=== PATIENT | male | born 1990 | race Caucasian/White ===

== ENCOUNTER 2024-10-25 22:14 | Emergency (ER) | payer OTHER, SELFPAY ==
[2024-10-25 22:22] VITALS: BP 160/100; PULSE 86; O2SAT 99
[2024-10-25 22:35] VITALS: BP 137/74; PULSE 92; RESP 18; TEMP 36.7; O2SAT 98; BMI 46.5
[2024-10-26 01:24] VITALS: BP 115/66; PULSE 76; RESP 16; TEMP 36.9; O2SAT 96
[2024-10-26 01:43] LABS: Hematocrit 41.2 % (42.0-52.0); Hemoglobin 13.8 g/dl (14.0-18.0); Imm Gran Abs Auto 0.04 X10*3/uL (0.00-0.03); Imm Gran Pct Auto 0.5 % (0.0-0.4); Lymphocytes Absolute Auto 2.2 X10*3/uL (1.2-4.9); MANUAL DIFF FLAG NO; Mean Corpuscular HGB Conc 33.5 g/dl (31.0-36.0); Mean Corpuscular Hemoglobin 27.9 pg (27.0-33.0); Mean Corpuscular Volume 83.2 fL (80.0-98.0); NRBC Abs Auto 0.000 X10*3/uL (0.0-0.012); NRBC Pct Auto 0.0 /100WBC (0.0-0.2); Platelet Count 302 X10*3/uL (160-400); Red Blood Count 4.95 X10*6/uL (4.60-5.80); White Blood Count 7.8 X10*3/uL (4.8-10.8)
--- NOTE | 2024-10-26 01:51 | ED_ITS ---
HPI - General Adult General Chief complaint: General Medical Stated complaint: n/v diaphoretic L arm hurts Time Seen by Provider: 10/26/24 01:50 Source: patient Mode of arrival: ambulatory Limitations: no limitations History of Present Illness ED Provider: Anthony JAMESON HPI narrative: The patient is a otherwise healthy 34-year-old male presenting to the ED reporting approximately 1 hour prior to arrival in the ED he had returned home from running errands, was helping his in the kitchen, when he became significantly diaphoretic with left arm tingling and pain radiating from his left shoulder into his left neck. The patient reports he advised his he would take a shower, while in the shower became acutely nauseous and vomited 1 time with nonbilious and nonbloody vomiting. The patient denies associated objective fever, chills, chest pain, shortness of breath, pleurisy, headache, dizziness, near-syncope, syncope, recent sick contacts, recent trauma, change in activity, change in diet, or similar previous episodes. The patient reports since arriving in the ED his symptoms have fully resolved. Patient denies any alcohol or recreational drug use, reports eating and drinking well today. Related Data Allergies Allergy/AdvReac Type Severity Reaction Status Date / Time No Known Allergies Allergy Verified 10/25/24 22:36 Review of Systems 2 Review of Systems: Yes all other systems are reviewed and are negative PMFSH Social History Social History Smoked in Last 30 Days: No Use of substances other than those prescribed or required for medical reasons: No Advance Directives: No Advance Directives Information Provided: Yes Physical Exam ED Vital Signs: Vital Signs - 24 hr 10/25/24 22:35 10/26/24 01:24 Temperature 98.1 F 98.4 F Pulse Rate 92 76 Respiratory Rate 18 16 Blood Pressure 137/74 115/66 Pulse Oximetry 98 96 Oxygen Delivery Method Room Air Room Air BMI result Body Mass Index 46.5 CONSTITUTIONAL: The patient appears non-toxic, well nourished and in no acute distress. Vital signs as documented. HEAD: Atraumatic, normocephalic. EYES: EOMs grossly intact, pupils equal, conjunctiva clear, no exudate. ENT: Nares patent, no discharge. Airway patent, no audible stridor, visible mucosa is pink and moist without noted lesions. NECK: Trachea is midline, no obvious masses or gross abnormalities. CHEST: Symmetric movement, normal appearance. LUNGS: LS present and CTAB, no w/r/r. Non-labored work of breathing. CARDIAC: Regular Rhythm, S1/S2 appreciated, no murmurs, rubs or gallops. ABDOMEN: Abdomen soft and non-tender x4 quadrants, no palpable masses or organomegaly. : Deferred. EXTREMITIES: Normal tone, moves all extremities spontaneously without reported pain. No obvious acute injury or deformity noted. NEURO: Alert and oriented x3, CN II-XII intact. Cerebellar Functioning intact. Strength 5/5 x4, no sensory or motor deficits. Speech clear and appropriate. PSYCH: normal affect, appropriate eye contact, fluid speech, with appropriate response to questioning. No reported suicidality or homicidality. SKIN: Warm, dry, color appropriate, normal turgor. No rashes noted. Medical Decision Making Medical Decision Making MDM Narrative: 2:38 AM 10/26/2024 (Simona JAMESON): The patient is a [place] healthy 34-year-old male presenting to the ED for evaluation of sudden onset diaphoresis with left shoulder pain radiating to left neck that began while performing ADLs in the kitchen. Patient took a shower due to diaphoresis and became acutely nauseous with a 1 episode of nonbilious and nonbloody vomiting. The patient had no associated chest pain, no dizziness, headache, focal neurologic deficit, or syncope. Patient presents to the ED health reports since arriving in the ED his symptoms have fully resolved. The patient's exam is markedly reassuring, no acute findings, no focal neurological deficits. The patient's EKG is nonischemic, troponin is negative, viral swab negative for flu, RSV, or COVID. Laboratory evaluation shows no leukocytosis, significant anemia, electrolyte abnormality, or ROSALINDA. Lipase and LFTs are unremarkable. The patient is PERC negative. The exact cause of the patient's symptoms is not entirely clear, however at this time the patient's exam is benign, symptoms have resolved, and workup is markedly reassuring. The patient's symptoms occurred at approximately 21:00, patient reports symptoms had resolved upon arrival in the ED at 22:30, 1st troponin was drawn at 01:40. We will recommend repeat troponin at 03:30. Pending no reoccurrence of symptoms and negative repeat troponin, patient will be appropriate for discharge with outpatient follow up. Admission/Observation Consideration of admission/observation: Escalation of care including admission/observation considered Lab Data MDM Lab Attestation statement: I reviewed the patient's lab results. 10/26/24 01:38 10/26/24 01:38 Labs: Lab Results 10/26/24 10/26/24 Range/Units 01:38 03:35 WBC 7.8 (4.8-10.8) X10*3/uL RBC 4.95 (4.60-5.80) X10*6/uL Hgb 13.8 L (14.0-18.0) g/dl Hct 41.2 L (42.0-52.0) % MCV 83.2 (80.0-98.0) fL MCH 27.9 (27.0-33.0) pg MCHC 33.5 (31.0-36.0) g/dl RDW 14.1 (11.0-16.0) % Plt Count 302 (160-400) X10*3/uL MPV 9.3 L (9.4-12.4) fL Immature Gran % (Auto) 0.5 H (0.0-0.4) % Neut % (Auto) 59.4 (45-73) % Lymph % (Auto) 27.8 (20-40) % [place] % (Auto) 8.7 (2-11) % Eos % (Auto) 3.2 (0-4) % Baso % (Auto) 0.4 (0-2) % Lymph # (Auto) 2.2 (1.2-4.9) X10*3/uL [place] # (Auto) 0.7 (0.1-1.2) X10*3/uL Eos # (Auto) 0.3 (0.0-0.4) X10*3/uL Baso # (Auto) 0.0 (0.0-0.2) X10*3/uL Abs Immat Gran (auto) 0.04 H (0.00-0.03) X10*3/uL Absolute Neuts (auto) 4.7 (2.0-8.3) x10*3/uL Absolute Nucleated RBC 0.000 (0.0-0.012) X10*3/uL Nucleated RBC % (auto) 0.0 (0.0-0.2) /100WBC Sodium 139 (135-145) mmol/L Potassium 4.6 (3.3-5.1) mmol/L Chloride 103 (96-108) mmol/L Carbon Dioxide 28 (22-29) mmol/L Anion Gap 13 (12-20) BUN 16 (9-16) mg/dL Creatinine 0.75 (0.5-1.4) mg/dL Estim Creat Clear Calc 217.4 Estimated GFR > 60 Random Glucose 103 (60-115) mg/dL Calcium 9.1 (8.4-10.2) mg/dL Total Bilirubin 0.4 (0.0-1.0) mg/dL AST 30 (5-37) U/L ALT 27 (0-40) U/L Alkaline Phosphatase 100 (39-117) U/L Troponin I High Sens 3.6 2.9 (<3.5-35.0) ng/L Total Protein 7.1 (6.5-8.0) g/dL Albumin 4.1 (3.5-5.0) g/dL Lipase 15 (8-78) U/L Influenza Type A (PCR) NEGATIVE (Negative) Influenza Type B (PCR) NEGATIVE (Negative) RSV RNA Qual (PCR) NEGATIVE (Negative) SARS-CoV-2 RNA (RT-PCR) NEGATIVE (Negative) Independent Interpretation I performed an independent interpretation of an: EKG (EKG shows sinus rhythm with a rate of 74, no evidence of acute ischemia, no ST elevation, no ectopy. QTC 428. No old for comparison. ) Discharge Plan Discharge Clinical Impression: Diaphoresis Nausea & vomiting Qualifiers: Vomiting type: unspecified Qualified Code(s): R11.2 - Nausea with vomiting, unspecified Patient Disposition: Home, Self-Care Instructions: Acute Nausea and Vomiting (ED), Near Syncope (ED) Additional Instructions: Thank you for choosing [facility]'s Emergency Department for your care today. Thankfully your symptoms have all improved since arriving in the ED and your laboratory evaluation EKG, and exam today are all reassuring. At this time there is no indication for admission to the hospital or continued ED observation, and it is safe to discharge you home. The exact cause of your symptoms is not entirely clear, however there is no evidence of any acute cardiac, pulmonary, infectious, metabolic, neurologic, coagulopathic (blood clot), or other dangerous cause for your symptoms. Please stay well hydrated and get plenty of rest. Please follow up with your primary care physician for re-evaluation, additional management of your symptoms, and continued preventative care. If you do not have a primary care physician, please call the [facility] at [phone] to establish a new primary care physician. While waiting to establish your new primary care physician, you can call our Walk-in Care Clinic at [phone] for non-emergency needs. Please return to the emergency department if you develop recurrence of your symptoms, a severe or sudden change in your symptoms, a fever over 100.4 that does not improve with Tylenol or Ibuprofen, recurrent vomiting, or any other new or worsening symptoms or concerns. Referrals: Physician,Unknown J [Primary Care Provider, Medical] Clinical Impression: Diaphoresis; Nausea & vomiting Print Language: Lithuanian
--- NOTE | 2024-10-26 01:52 | ECG_ITS ---
Test Reason : L ARM PAIN Blood Pressure : */* mmHG Vent. Rate : 74 BPM Atrial Rate : 74 BPM P-R Int : 128 ms QRS Dur : 78 ms QT Int : 386 ms P-R-T Axes : 29 27 25 degrees QTcB Int : 428 ms Normal sinus rhythm Normal ECG No previous ECGs available Referred By: Anthony Menjivar Electronically Signed By: AMARI PAN
[2024-10-26 01:59] LABS: Alanine Aminotransferase 27 U/L (0-40); Albumin Level 4.1 g/dL (3.5-5.0); Alkaline Phosphatase 100 U/L (39-117); Anion Gap 13 (12-20); Aspartate Amino Transferase 30 U/L (5-37); Blood Urea Nitrogen 16 mg/dL (9-16); Calcium 9.1 mg/dL (8.4-10.2); Carbon Dioxide 28 mmol/L (22-29); Chloride 103 mmol/L (96-108); Creatinine Clr Calc Pharmacy 217.4; Estimated Glomerular Filt Rate > 60; Lipase 15 U/L (8-78); Potassium 4.6 mmol/L (3.3-5.1); Sodium 139 mmol/L (135-145); Total Protein 7.1 g/dL (6.5-8.0)
[2024-10-26 02:06] LABS: Troponin-I High Sensitivity 3.6 ng/L (<3.5-35.0)
[2024-10-26 02:20] LABS: Resp Syncy Virus RNA Qual PCR NEGATIVE (Negative); SARS COV2 PCR INHOUSE NEGATIVE (Negative)
--- OUTSIDE RECORDS SUMMARY | 2024-10-26 02:28 | XMS_ITS | Clinical Summary ---
Author Organization [address] [facility] Address [address] [place] [address] Phone Care Team Providers Care Cosmetician Apprentice Name Role Phone StevieOlya navarro STAVE JOINTER Primary Care Provider [phone] Social History Tobacco Use Types Packs/Day Years Used Date Smoking Tobacco: Never Assessed Sex and Gender Information Value Date Recorded Sex Assigned at Not on file Legal Sex Male 1:54 PM EST Gender Identity Not on file Sexual Orientation Not on file Plan of Treatment Health Maintenance Due Date Last Done Comments DTaP,Tdap,and Td Vaccines (1 - Tdap) 01/25/2011 Hepatitis B Vaccines (1 of 3 - 19+ 3-dose series) 01/25/2011 HIV Screening 02/16/2022 Hepatitis C Screening 02/16/2022 Social Influencers of Health Screening 02/16/2022 COVID-19 Vaccine ( - 2023-2 5 season) 2023 Depression Screening 03/20/2024 Influenza Vaccine (#1) 2024 HIB Vaccines Aged Out No longer eligi ble based on patient's age to complete this topic HPV Vaccines Aged Out No longer eligi ble based on patient's age to complete this topic Hepatitis A Vaccines Aged Out No long er eligible based on patient's age to complete this topic IPV Vaccines Aged Out No longer eligi ble based on patient's age to complete this topic MMR Vaccines Aged Out No longer eligi ble based on patient's age to complete this topic Meningococcal ACWY Vaccine Aged Out N o longer eligible based on patient's age to complete this topic Meningococcal B Vaccine Aged Out No l onger eligible based on patient's age to complete this topic Pneumococcal Vaccine: Pediat rics (0 to 5 Years) and At-Risk Patients (6 to 49 Years) Aged Out No longer eligible b ased on patient's age to complete this topic RSV Immunization Patients Un quynh 20 months Aged Out No longer eligible b ased on patient's age to complete this topic Varicella Vaccines Aged Out No longer eligible based on patient's age to complete this topic Insurance * Guarantor: Caprice Freeman Account Type Relation to Patient Date of Phone Billing Address Personal/Family Self 1990 [address] [place] [id number] [facility] Care Teams Cosmetician Apprentice Relationship Specialty Start Date End Date Olya Hubbard FNP [address] [place] [address] PCP - General Family Medicine 07/31/24
--- OUTSIDE RECORDS SUMMARY | 2024-10-26 02:28 | XMS_ITS | Clinical Summary ---
Author Organization [facility] Address [address] [place] [id number] Phone Care Team Providers Care Health Commissioner Name Role Phone Pcp, Unknown Primary Care Provider Unavailabl e Allergies No known active allergies Medications No known medications Immunizations Immunization Administration Dates Next Due COVID-19 (Pre-01/09) Moderna Vaccine, Bivalent 6 mo+ 03/10/2022,03/10/2022 COVID-19 (Pre-01/09) Moderna Vaccine, mRNA, PF 1 04/02/2020,10/09/2020 INFLUENZA, SPLIT VIRUS, TRIVALENT PF 01/18/2024 Tdap 06/08/2018 Social History Tobacco Use Types Packs/Day Years Used Date Smoking Tobacco: Never Assessed Education Answer Date Recorded Are you interested in more education? Not on fer e 07/16/2022 Are you concerned about learning? Not on file 07/16/2022 No 07/16/2022 No 07/16/2022 Digital Access Answer Date Recorded No 08/16/2022 No 08/16/2022 Reliable internet access at home? Not on file 08/16/2022 Device with a working camera? Not on file Intimate Partner Violence Answer Date R ecorded Are you denied basic needs s uch as food, clothing, or medical care? No 03/09/2022 In the past 12 months have y ou been in a relationship with a person who hurts, threatens, or tries to control you? No 03/09/2022 Are you denied basic needs s uch as food, clothing, or medical care? No 03/09/2022 In the past 12 months have y ou been in a relationship with a person who hurts, threatens, or tries to control you? No 03/09/2022 Sex and Gender Information Value Date Recorded Sex Assigned at Not on file Legal Sex Male 7:11 PM EST Gender Identity Not on file Sexual Orientation Not on file Last Filed Vital Signs Vital Sign Reading Time Taken Comments Blood Pressure 121/82 03/09/2022 2:34 PM EST Pulse 89 03/09/2022 2:34 PM EST Temperature 36.7 C (98 F) 03/09/2022 2:34 PM EST Respiratory Rate 20 03/09/2022 2:34 PM EST Oxygen Saturation 99% 03/09/2022 2:34 PM EST Inhaled Oxygen Concentration - - Weight 161 kg (355 lb) 02/25/2021 7:46 PM EST Height - - Body Mass Index - - Plan of Treatment Health Maintenance Due Date Last Done Comments DEPRESSION SCREENING 2004 SMOKING Hx and SMOKELESS TOBACCO SCREENING 01/25/2005 HEPATITIS C SCREENING 01/25/2010 HIV ONE-TIME SCREENING (18-65 YEARS) 01/25/2010 COVID-19 VACCINE ( season) 2023 03/10/2022, 03/10/2022, 01/31/2021, Additional history exists Adult Td,Tdap Booster 06/08/2028 06/08/2018 PNEUMOCOCCAL VACCINES (0-49 years) Aged Out 11/01/2021 No longer eligible based on patient's age to complete this topic HEPATITIS A VACCINES Aged Out No long er eligible based on patient's age to complete this topic HIB VACCINES Aged Out No longer eligi ble based on patient's age to complete this topic MENINGOCOCCAL VACCINES (ACWY) Aged Out No longer eligible based on patient's age to complete this topic MENINGOCOCCAL VACCINES (B) Aged Out N o longer eligible based on patient's age to complete this topic Medical Devices Not on file Insurance [facility] [employer] HEALTHY PARTNERSHIP ACO HE[facility]Y [facility] ACO HE[facility]Y [facility] ACO A[employer] PART[employer]SHIP [place] [address] [place] [address] ACO Care Teams Health Commissioner Relationship Specialty Start Date End Date Pcp, Unknown PCP - General 02/25/21 Additional Source Comments The information contained in this document represents components of the legal health record. It is not the complete legal health record.[facility]
[2024-10-26 04:06] LABS: Troponin-I High Sensitivity 2.9 ng/L (<3.5-35.0)
[2024-10-26 04:22] VITALS: BP 119/69; PULSE 80; TEMP 36.4; O2SAT 99
[2024-10-26 04:27] VITALS: BP 119/69; PULSE 80; RESP 16; TEMP 36.4; O2SAT 99
== END 2024-10-26 04:28 | disposition home or self-care (01) ==
PROVIDERS: Physician Assistant; Emergency Provider Emergency Medicine
DX: R61 Generalized hyperhidrosis (principal); R11.2 Nausea with vomiting, unspecified; Z03.818 Encounter for observation for suspected exposure to other biological agents ruled out
CPT/HCPCS: 36415; 80053; 83690; 84484; 85025; 87637; 93005; 99283; 99284

== ENCOUNTER → 2024-10-26 01:52 | Outpatient (BNV) | payer SELFPAY | PROVIDERS: Emergency Provider Emergency Medicine; Visit Provider Internal Medicine | DX: M79.602 Pain in left arm (principal) | CPT/HCPCS: 93010 ==